=== PATIENT | male | born 1940 | race Caucasian/White ===

== ENCOUNTER 2018-03-26 09:08 | Emergency (ER) | payer MEDICARE, OTHER ==
[~2018-03-26] VITALS: Ht 185.4 cm; Wt 104.3 kg
[2018-03-26 11:02] LABS: BASOPHILS % (AUTO) 0 % (0-10); EOSINOPHILS # (AUTO) 0.1 10^3/uL (0.0-0.3); EOSINOPHILS % (AUTO) 2 % (0-10); HEMATOCRIT 46 % (40-54); HEMOGLOBIN 15.7 G/DL (13.3-17.7); LYMPHOCYTES # (AUTO) 1.9 X 10^3 (1.0-4.0); LYMPHOCYTES % (AUTO) 24 % (12-44); MEAN CORPUSCULAR HEMOGLOBIN 29 PG (25-34); MEAN CORPUSCULAR HGB CONC 34 G/DL (32-36); MEAN CORPUSCULAR VOLUME 85 FL (80-99); MEAN PLATELET VOLUME 10.1 FL (7.4-10.4); MONOCYTES # (AUTO) 0.8 X 10^3 (0.0-1.0); MONOCYTES % (AUTO) 10 % (0-12); NEUTROPHILS # (AUTO) 4.9 X 10^3 (1.8-7.8); NEUTROPHILS % (AUTO) 64 % (42-75); PLATELET COUNT 217 10^3/uL (130-400); RED BLOOD COUNT 5.36 10^6/uL (4.35-5.85); RED CELL DISTRIBUTION WIDTH 14.3 % (10.0-14.5); WHITE BLOOD COUNT 7.7 10^3/uL (4.3-11.0)
[2018-03-26 11:21] LABS: BILIRUBIN,URINE NEGATIVE (NEGATIVE); CLARITY,URINE CLEAR; COLOR,URINE YELLOW; GLUCOSE, URINE (UA) NEGATIVE (NEGATIVE); KETONES,URINE 1+ (NEGATIVE); LEUKOCYTE ESTERASE ,URINE 2+ (NEGATIVE); NITRITE,URINE NEGATIVE (NEGATIVE); PH,URINE 5 (5-9); PROTEIN,URINE 2+ (NEGATIVE); UROBILINOGEN,URINE NORMAL (NORMAL)
[2018-03-26 11:23] LABS: ALANINE AMINOTRANSFERASE 24 U/L (0-55); ALBUMIN 4.4 GM/DL (3.2-4.5); ALKALINE PHOSPHATASE 67 U/L (40-136); BILIRUBIN,TOTAL 0.8 MG/DL (0.1-1.0); BUN/CREATININE RATIO 18; CALCIUM 9.4 MG/DL (8.5-10.1); CARBON DIOXIDE 27 MMOL/L (21-32); CHLORIDE 105 MMOL/L (98-107); CREATININE SERUM 0.99 MG/DL (0.60-1.30); GFR ESTIMATED > 60; GLUCOSE 102 MG/DL (70-105); SODIUM 140 MMOL/L (135-145); TOTAL PROTEIN 7.5 GM/DL (6.4-8.2)
[2018-03-26 11:32] LABS: BACTERIA,URINE TRACE /HPF; SQUAMOUS EPITHELIAL CELL,UR RARE /HPF; WBC,URINE 0-2 /HPF
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
[2018-03-26 12:18] LABS: AMPHETAMINE SCREEN, URINE NEGATIVE (NEGATIVE); BARBITURATE SCREEN URINE NEGATIVE (NEGATIVE); BENZODIAZEPINES SCREEN URINE NEGATIVE (NEGATIVE); CANNABINOID SCREEN, URINE NEGATIVE (NEGATIVE); COCAINE SCREEN URINE NEGATIVE (NEGATIVE); METHADONE STAT NEGATIVE (NEGATIVE); METHAMPHETAMINE SCREEN URINE S NEGATIVE (NEGATIVE); OPIATE SCREEN URINE NEGATIVE (NEGATIVE); OXYCODONE STAT NEGATIVE (NEGATIVE); PROPOXYPHENE STAT NEGATIVE (NEGATIVE); TRICYCLIC ANTIDEPRESSANTS SCRE NEGATIVE (NEGATIVE)
--- NOTE | 2018-03-26 12:21 | Diagnostic Imaging Report ---
PROCEDURE: CT head and CT cervical spine without contrast. TECHNIQUE: Multiple contiguous axial images were obtained through the brain and cervical spine without the use of intravenous contrast. Sagittal and coronal reformations through the cervical spine were then performed. INDICATION: Falls, weakness. COMPARISON: None available. FINDINGS: CT HEAD: No hyperdense hemorrhage or space-occupying mass. No hydrocephalus or midline shift. Cystic encephalomalacia in the left frontal lobe may relate to old intraparenchymal hemorrhage or ischemic insult. Postoperative changes from tumor resection could also have this appearance. Irregularity of the anterior left calvarium may be due to old healed fracture. No acute fracture. Paranasal sinuses and mastoid air cells are clear. CT CERVICAL SPINE: No acute fracture or traumatic malalignment. No fracture within the temporal bones. No high-grade spinal stenosis. No cervical lymphadenopathy. Thyroid is normal. Lung apices are clear. IMPRESSION: 1. No acute intracranial hemorrhage or skull fracture. 2. No acute fracture or traumatic malalignment of the cervical spine. 3. Left frontal encephalomalacia underlies an old healed fracture in the calvarium. This encephalomalacia is likely due to prior intraparenchymal hemorrhage, and correlation with history is advised. Dictated by: Dictated on workstation # [id number]
--- NOTE | 2018-03-26 12:23 | Diagnostic Imaging Report ---
INDICATION: Right-sided numbness, decreasing balance, memory loss, and weakness. TECHNIQUE: PA and lateral views of the chest were obtained at 1222 hours. FINDINGS: The heart and mediastinal silhouette are normal in appearance. The lungs are clear. There is no pneumothorax or pleural fluid. IMPRESSION: No acute process in the chest. Dictated by: Dictated on workstation # [id number]
[2018-03-26 14:29] VITALS: BP 169/98
== END 2018-03-26 14:29 | disposition home or self-care (01) ==
LOC: EDUNIT# 09:08 → ER 09:09
DX: R53.1 Weakness (principal); R20.2 Paresthesia of skin; I10 Essential (primary) hypertension; Z90.89 Acquired absence of other organs; Z91.14 Patient's other noncompliance with medication regimen; Z87.891 Personal history of nicotine dependence
CPT/HCPCS: 36415; 70450; 71046; 72125; 80053; 80306; 81000; 82550; 84443; 84484; 85025; 86141; 86703; 86780; 93005

== ENCOUNTER 2021-02-27 21:55 | Emergency (ER) | payer MEDICARE, OTHER ==
[~2021-02-27] VITALS: Ht 182.9 cm; Wt 108.9 kg
--- NOTE | 2021-02-27 22:49 | ED Abdominal Pain ---
General Chief Complaint: Abdominal/GI Problems Stated Complaint: CONSTIPATION Nursing Triage Note: Pt ambulates to ED 9 with c/o constipation and difficulty urinating. Reports they started at the same time, approximately 2-3 days ago. Pt took Miralax at home (has never taken before) with no improvement. He reports feeling unable to empty his bladder fully and has pain around his lower abdomen that increases when he tries to have a BM Source of Information: Patient, Family (()) Exam Limitations: No Limitations History of Present Illness Date Seen by Provider: Feb 27, 2021 Time Seen by Provider: 22:30 Initial Comments Patient is a 80-year-old male who presents to the emergency department today with a chief complaint of increasing left lower quadrant abdominal pain, constipation for the last 3 days. He complains of little shortness of breath and some generalized weakness. He states he is having a hard time emptying his bladder. He did recently start finasteride per his urologist in [facility]. He states he does not feel like this medication is helping. He states that every time he tries to urinate he has a pressure sensation in his rectum like he needs to have a bowel movement but cannot. He started taking MiraLAX a couple of days ago and prunes yesterday. No relief of symptoms. He denies fevers, ch ills, nausea or vomiting. No burning with urination. No prior abdominal surgeries. History of hypertension, no current coronary artery disease. He is not a diabetic. All other review of systems reviewed and negative except as stated. Timing/Duration: 2-3 Days Severity/Quality: Moderate, Cramping Location: LLQ Radiation: No Radiation Associated Symptoms: Back Pain (low back discomfort), Weakness (mild), Other (some chillls and a little SOB) Allergies and Home Medications Allergies Coded Allergies: No Known Drug Allergies (Unverified , 03/26/18) Patient Home Medication List Home Medication List Reviewed: Yes Review of Systems Review of Systems Constitutional: see HPI, chills EENTM: No Symptoms Reported Respiratory: SOA at Rest Cardiovascular: No Symptoms Reported Gastrointestinal: Abdominal Pain, Constipated Genitourinary: Frequency, Urgency Musculoskeletal: no symptoms reported Skin: no symptoms reported Psychiatric/Neurological: No Symptoms Reported Endocrine: No Symptoms Reported All Other Systems Reviewed Negative Unless Noted: Yes Past Opvipul-Quvnsy-Meydiu Hx Immunizations Up To Date Tetanus Booster (TDap): Unknown PED Vaccines UTD: Yes Seasonal Allergies Seasonal Allergies: No Past Medical History Surgeries: Yes (skull) Orthopedic, Tonsillectomy Respiratory: No Cardiac: Yes Hypertension Neurological: No Genitourinary: Yes Prostate Problems Musculoskeletal: No Endocrine: No HEENT: No Cancer: No Psychosocial: No Integumentary: No Blood Disorders: No Physical Exam Vital Signs Vital Signs - First Documented 02/27/21 22:05 Temp 36.5 Pulse 79 Resp 22 B/P (MAP) 161/99 (119) Pulse Ox 97 O2 Delivery Room Air Capillary Refill : Less Than 3 Seconds Height/Weight/BMI Height: 6'1.00" Weight: 230lbs. oz. 104.901790ir; 32.00 BMI Method:Stated General Appearance: WD/WN, no apparent distress HEENT: PERRL/EOMI Neck: full range of motion, normal inspection Respiratory: lungs clear, normal breath sounds, no respiratory distress, no accessory muscle use Cardiovascular: regular rate, rhythm Gastrointestinal: normal bowel sounds, soft, tenderness (mild tenderness in the LLQ) Rectal: normal rectal tone, other (no large bolus of stool in the rectal vault; unable to fecal occult secondary to no stool) Extremities: normal range of motion, non-tender, normal inspection, no pedal edema Neurologic/Psychiatric: no motor/sensory deficits, alert, normal mood/affect, oriented x 3 Skin: normal color, warm/dry Progress/Results/Core Measures Results/Orders Lab Results Laboratory Tests Test 02/27/21 22:20 02/27/21 22:45 Range/Units White Blood Count 10.3 4.3-11.0 10^3/uL Red Blood Count 4.88 4.30-5.52 10^6/uL Hemoglobin 14.4 13.3-17.7 g/dL Hematocrit 43 40-54 % Mean Corpuscular Volume 88 80-99 fL Mean Corpuscular Hemoglobin 30 25-34 pg Mean Corpuscular Hemoglobin Concent 34 32-36 g/dL Red Cell Distribution Width 13.9 10.0-14.5 % Platelet Count 235 130-400 10^3/uL Mean Platelet Volume 10.1 9.0-12.2 fL Immature Granulocyte % (Auto) 1 % Neutrophils (%) (Auto) 74 42-75 % Lymphocytes (%) (Auto) 17 12-44 % Monocytes (%) (Auto) 8 0-12 % Eosinophils (%) (Auto) 0 0-10 % Basophils (%) (Auto) 0 0-10 % Neutrophils # (Auto) 7.7 1.8-7.8 10^3/uL Lymphocytes # (Auto) 1.7 1.0-4.0 10^3/uL Monocytes # (Auto) 0.9 0.0-1.0 10^3/uL Eosinophils # (Auto) 0.0 0.0-0.3 10^3/uL Basophils # (Auto) 0.0 0.0-0.1 10^3/uL Immature Granulocyte # (Auto) 0.1 0.0-0.1 10^3/uL Sodium Level 137 135-145 MMOL/L Potassium Level 3.8 3.6-5.0 MMOL/L Chloride Level 104 98-107 MMOL/L Carbon Dioxide Level 19 L 21-32 MMOL/L Anion Gap 14 5-14 MMOL/L Blood Urea Nitrogen 20 H 7-18 MG/DL Creatinine 0.92 0.60-1.30 MG/DL Estimat Glomerular Filtration Rate 80 BUN/Creatinine Ratio 22 Glucose Level 107 H 70-105 MG/DL Calcium Level 9.5 8.5-10.1 MG/DL Corrected Calcium 9.3 8.5-10.1 MG/DL Total Bilirubin 0.9 0.1-1.0 MG/DL Aspartate Amino Transf (AST/SGOT) 32 5-34 U/L Alanine Aminotransferase (ALT/SGPT) 15 0-55 U/L Alkaline Phosphatase 71 40-136 U/L Total Protein 7.9 6.4-8.2 GM/DL Albumin 4.3 3.2-4.5 GM/DL Urine Color YELLOW Urine Clarity CLEAR Urine pH 6.0 5-9 Urine Specific [place] >=1.030 1.016-1.022 Urine Protein NEGATIVE NEGATIVE Urine Glucose (UA) NEGATIVE NEGATIVE Urine Ketones NEGATIVE NEGATIVE Urine Nitrite NEGATIVE NEGATIVE Urine Bilirubin NEGATIVE NEGATIVE Urine Urobilinogen 0.2 < = 1.0 MG/DL Urine Leukocyte Esterase NEGATIVE NEGATIVE Urine RBC (Auto) NEGATIVE NEGATIVE Urine RBC NONE /HPF Urine WBC NONE /HPF Urine Squamous Epithelial Cells NONE /HPF Urine Renal Epithelial Cells NONE /HPF Urine Crystals NONE /LPF Urine Bacteria NEGATIVE /HPF Urine Casts NONE /LPF Urine Mucus NEGATIVE /LPF Urine Culture Indicated NO My Orders Orders - JOSIAH TSAI MD Ed Iv/Invasive Line Start (02/27/21 22:44) Cbc With Automated Diff (02/27/21 22:44) Comprehensive Metabolic Panel (02/27/21 22:44) Ua Culture If Indicated (02/27/21 22:44) Abdomen/Kub 1view (02/27/21 22:44) Ns Iv 1000 Ml (Sodium Chloride 0.9%) (02/27/21 23:15) Vital Signs/I&O 02/27/21 22:05 Temp 36.5 Pulse 79 Resp 22 B/P (MAP) 161/99 (119) Pulse Ox 97 O2 Delivery Room Air Blood Pressure Mean: 119 Progress Progress Note : Time: 23:40 Progress Note Patient's labs reviewed, unremarkable. His KUB demonstrates mild to moderate stool burden. Urinalysis is somewhat concentrated with a specific gravity greater than 1.030. Patient's vital signs have been stable. His abdominal exam is benign. I have no concerns for acute intra-abdominal pathology. He does not have any signs or symptoms of bowel obstruction. Patient is concerned that every time he attempts to urinate it is very small amounts and it causes a "cramp" "in his right side. He has an urge to have a bowel movement but then cannot. I have recommended that he supplement his prunes and MiraLAX with some magnesium citrate. He did have a colonoscopy a couple of months ago that showed no significant pathology. I recommended that he use the magnesium citrate like a colon prep. I advised him to follow-up with his urologist tomorrow regarding his dribbling urine. He verbalized understanding. All questions are sought and answered. Patient will be stable for discharge after completion of IV fluids. Diagnostic Imaging Diagonstic Imaging: Xray Comments [facility], [place] NAME: OSVALDOJADPADMINI Malave [facility] REC#: [id number] PT STATUS: REG ER : 1940 PHYSICIAN: JOSIAH TSAI MD ADMIT DATE: 02/27/21/ER Draft Date of Exam:02/27/21 ABDOMEN/KUB 1VIEW HISTORY: Constipation. Abdominal pain in the left lower quadrant of the abdomen TECHNIQUE: Supine frontal views of the abdomen COMPARISON: None FINDINGS: There is a small to moderate amount of stool throughout the colon. No large collection of free air is seen. No distended loops of small bowel are identified. There are degenerative changes in the lower lumbar spine. No acute osseous abnormality is seen. IMPRESSION: 1. Low to moderate stool burden. No small bowel obstruction. Dictated on workstation # [id number] Dict: 02/27/21 2319 Trans: 02/27/21 2321 [facility] [id number] Interpreted by: NICHOLAS SEAMAN MD Electronically signed by: Departure Impression Primary Impression: Constipation Qualified Codes: K59.00 - Constipation, unspecified Disposition: HOME, SELF-CARE Condition: Stable Departure-Patient Inst. Decision time for Depature: 23:42 Referrals: NO,LOCAL PHYSICIAN (PCP/Family) Primary Care Physician Patient Instructions: Constipation, Adult (DC) Add. Discharge Instructions: Continue your daily medications as prescribed. You need to increase your overall intake of water. 8, 8 ounce glasses a day. You will need to do some magnesium citrate to help clean out your bowels. I recommend staying at home drinking half a bottle tomorrow morning and then about another half early tomorrow evening. If you have any severe abdominal cramping, vomiting please come back to the emergency department for reevaluation. Please follow-up with your urologist tomorrow JOSIAH TSAI MD Feb 27, 2021 22:48
[2021-02-27 22:50] LABS: BASOPHILS % (AUTO) 0 % (0-10); EOSINOPHILS % (AUTO) 0 % (0-10); HEMATOCRIT 43 % (40-54); HEMOGLOBIN 14.4 g/dL (13.3-17.7); LYMPHOCYTES # (AUTO) 1.7 10^3/uL (1.0-4.0); LYMPHOCYTES % (AUTO) 17 % (12-44); MEAN CORPUSCULAR HEMOGLOBIN 30 pg (25-34); MEAN CORPUSCULAR HGB CONC 34 g/dL (32-36); MEAN CORPUSCULAR VOLUME 88 fL (80-99); MEAN PLATELET VOLUME 10.1 fL (9.0-12.2); MONOCYTES # (AUTO) 0.9 10^3/uL (0.0-1.0); MONOCYTES % (AUTO) 8 % (0-12); NEUTROPHILS # (AUTO) 7.7 10^3/uL (1.8-7.8); NEUTROPHILS % (AUTO) 74 % (42-75); PLATELET COUNT 235 10^3/uL (130-400); WHITE BLOOD COUNT 10.3 10^3/uL (4.3-11.0)
[2021-02-27 22:51] LABS: BILIRUBIN,URINE NEGATIVE (NEGATIVE); CLARITY,URINE CLEAR; COLOR,URINE YELLOW; GLUCOSE, URINE (UA) NEGATIVE (NEGATIVE); KETONES,URINE NEGATIVE (NEGATIVE); LEUKOCYTE ESTERASE ,URINE NEGATIVE (NEGATIVE); NITRITE,URINE NEGATIVE (NEGATIVE); PROTEIN,URINE NEGATIVE (NEGATIVE)
[2021-02-27 22:52] LABS: ALBUMIN 4.3 GM/DL (3.2-4.5)
[2021-02-27 22:53] LABS: POTASSIUM 3.8 MMOL/L (3.6-5.0)
[2021-02-27 22:54] LABS: CALCIUM 9.5 MG/DL (8.5-10.1)
[2021-02-27 22:55] LABS: TOTAL PROTEIN 7.9 GM/DL (6.4-8.2)
[2021-02-27 22:57] LABS: BILIRUBIN,TOTAL 0.9 MG/DL (0.1-1.0)
[2021-02-27 22:59] LABS: CREATININE SERUM 0.92 MG/DL (0.60-1.30)
[2021-02-27 23:00] LABS: BACTERIA,URINE NEGATIVE /HPF
[2021-02-27] MEDS ORDERED: NS IV 1000 ML 1,000 ML IV SCH (23:15)
--- NOTE | 2021-02-27 23:21 | Diagnostic Imaging Report ---
HISTORY: Constipation. Abdominal pain in the left lower quadrant of the abdomen TECHNIQUE: Supine frontal views of the abdomen COMPARISON: None FINDINGS: There is a small to moderate amount of stool throughout the colon. No large collection of free air is seen. No distended loops of small bowel are identified. There are degenerative changes in the lower lumbar spine. No acute osseous abnormality is seen. IMPRESSION: 1. Low to moderate stool burden. No small bowel obstruction. Dictated by: Dictated on workstation # [id number]
[2021-02-28 00:27] VITALS: BP 136/83
--- OUTSIDE RECORDS SUMMARY | 2021-02-28 12:00 | XMS REPORT | Clinical Summary ---
Author Author [facility] Organization [facility] Address Unknown Phone Unavailable Care Team Providers Care Marketing Traffic Coordinator Name Role Phone Dpt [facility] PCP Source Comments Some departments are not documenting in the electronic medical record. If you d o not see the information that you expected, contact Release of Information in [facility] Information Management department at [phone] for further assistan ce in locating additional records.[facility] Allergies No known active allergies Medications End Date Status Medication Sig Dispensed Refills Start Date Active terazosin (HYTRIN) 2 mg Take 1 0 capsule capsule by mouth at bedtime daily. Active aspirin 81 mg chewable Chew 81 mg by 0 tablet mouth daily. Take with food. Active losartan (COZAAR) 50 mg Take 50 mg by 0 tablet mouth daily. Active betamethasone valerate Apply 0 (VALISONE) 0.1 % topical topically to cream affected area twice daily. Active amLODIPine (NORVASC) 10 Take 10 mg by 0 mg tablet mouth daily. Active atorvastatin (LIPITOR) 20 Take one 90 tablet 3 04/01/201 mg tablet tablet by 8 mouth daily. 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 Surgical History Surgery Date Site/Laterality Comments HX TONSILLECTOMY Medical History Medical History Date Comments Hypertension Stroke (HCC) Family History Medical History Relation Name Comments Cancer Mother Dementia Neg Hx Parkinson's Neg Hx Tremor Neg Hx Relation Name Status Comments Mother Social History Date Tobacco Use Types Packs/Day Years Used Former Smoker Smokeless Tobacco: Never Used Tobacco Cessation: Counseling Given: No Comments: quit in his 20s Comments Alcohol Use Standard Drinks/Week occ No 0 (1 standard drink = 0.6 o z pure alcohol) Alcohol Habits Answer Date Recorded How often do you have a drink containing alcohol? Never 04/25/2018 How many drinks containing alcohol do you have on No t asked a typical day when you are drinking? How often do you have six or more drinks on one Not asked occasion? 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 Temperature - - Respiratory Rate 100% 07/04/2018 10:08 AM CDT Oxygen Saturation - - Inhaled Oxygen Concentration 113.4 kg (250 lb) 07/04/2018 10:08 AM CDT Weight 182.9 cm (6') 07/04/2018 10:08 AM CDT Height 33.91 07/04/2018 10:08 AM CDT Body Mass Index Plan of Treatment Health Maintenance Due Date Last Done Comments MEDICARE ANNUAL WELLNESS 1940 VISIT DTAP/TDAP VACCINES (1 - 1960 Tdap) HEPATITIS C SCREENING 1958 PHYSICAL (COMPREHENSIVE) 1958 EXAM SHINGLES RECOMBINANT 1992 VACCINE (1 of 2) PNEUMONIA (PPSV23) 07/16/2007 VACCINE (1 of 1 - PPSV23) INFLUENZA VACCINE 11/07/2020 Results Not on filefrom Last 3 Months Insurance Type Payer Benefit Subscriber ID Effective Phone Address Plan / Dates Group Medicare MEDICARE MEDICARE [id number] 2009-P [phone] [address] [place] [address] Medicare CIGNA CIGNA [id number] 2018- [phone] [address] MEDICARE Present [address] [phone] Advance Directives 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 needed Care Teams Start Date End Date Marketing Traffic Coordinator Relationship Specialty 03/30/18 Dpt Vani Pierce In PCP - General [address] [place] [address]
--- OUTSIDE RECORDS SUMMARY | 2021-02-28 12:00 | XMS REPORT ---
Author Author Courtney Sarah [facility] Address [address] [place], [place] [id number] Care Team Providers Care Pourer Off Name Role Phone [place] Billy PCP Allergies and Adverse Reactions Name Reaction Notes No known allergies Plan of Treatment Not available. Medications Active Name Start Date Estimated Completion Date SIG Co mments valacyclovir 1 gram oral tablet take 1 tablet (1,000 mg) by oral route 3 times per day furosemide 20 mg oral tablet take 1 table t (20 mg) by oral route once daily gabapentin 300 mg oral capsule t roseline 1 capsule (300 mg) by oral route 3 times per day losartan 50 mg oral tablet take 1 tablet (50 mg) by oral route once daily terazosin 2 mg oral capsule 06/22/2020 06/17/2021 take 3 capsules by oral route daily for 90 days finasteride 5 mg oral tablet 02/08/2021 02/03/2022 tammi e 1 tablet (5 mg) by oral route once daily for 30 days Name Start Date Expiration Date SIG Comments Cipro 500 mg oral tablet 10/16/2019 10/30/2019 take 1 tablet (500 mg) by oral route every 12 hours for 14 days clotrimazole-betamethasone 1-0.05 % topical cream 11/18/2019 12/02/2019 apply to the affected and surrounding areas of skin by topical route 2 times per day in the morning and evening for 2 weeks Problem List Not available. Vital Signs Date Time BP-Sys(mm[Hg] BP-Mary(mm[Hg]) HR(bpm) RR(rpm) Temp WT HT HC BMI BSA BMI Percentile O2 Sat(%) 02/08/2021 9:02:00 AM 144 mm[Hg] 86 mm[Hg] 65 {beats}/min 18 rpm 98.1 F 238 lbs 72 in 32.2783 kg/m2 2.3418 m2 98 % 08/31/2020 11:14:00 AM 132 mm[Hg] 78 mm[Hg] 63 {beats}/min 18 rpm 98.6 F 98 % 06/22/2020 9:56:00 AM 130 mm[Hg] 86 mm[Hg] 56 {beats}/min 18 rpm 98.6 F 241 lbs 72 in 32.69 kg/m2 2.36 m2 98 % 12/23/2019 9:44:00 AM 138 mm[Hg] 82 mm[Hg] 58 {beats}/min 18 rpm 97 F 233 lbs 72 in 31.6002 kg/m2 2.3171 m2 98 % 11/18/2019 2:24:00 PM 132 mm[Hg] 80 mm[Hg] 76 {beats}/min 18 rpm 97.6 F 243 lbs 72 in 32.96 kg/m2 2.37 m2 97 % 10/16/2019 2:24:00 PM 132 mm[Hg] 70 mm[Hg] 63 {beats}/min 97.9 F 243 lbs 72 in 32.9564 kg/m2 2.3663 m2 98 % Social History Name Description Comments Alcohol Current some day Tobacco Former smoker History of Procedures Date Ordered Description Order Status 12/16/2019 12:00 AM ASSAY OF PSA TOTAL Reviewed 06/22/2020 11:28 AM US URINE CAPACITY MEASURE Reviewed 06/22/2020 12:00 AM URINALYSIS AUTO W/SCOPE Reviewed 08/31/2020 11:14 AM US URINE CAPACITY MEASURE Reviewed 08/31/2020 12:00 AM URINALYSIS AUTO W/SCOPE Reviewed 02/08/2021 9:17 AM US URINE CAPACITY MEASURE Reviewed Results Summary Date and Description Results 12/22/2019 1:20 PM PSA TOTAL 4.150 ng/mL 06/22/2020 11:28 AM Residual Urine 256.0 mL 06/22/2020 11:53 AM COLOR Light-Yellow CLARITY C lear SPEC GRAV 1.019 pH 5.5 PROTEIN Negative GLUCOSE Normal KETONE Negative BILIRUBIN Negative BLOOD Negative NITRITE Negative LEUK SCREEN Negative RBC/HPF 0-3 WBC/HPF None Seen BACTERIA/HPF None Seen SQUAMOUS EPI/LPF Few MUCOUS/LPF Few CULT SET UP? NO 08/31/2020 11:14 AM Residual Urine 255.0 mL 08/31/2020 12:47 PM COLOR Yellow CLARITY Clear S PEC GRAV 1.016 pH 5.5 PROTEIN Negative GLUCOSE Normal KETONE Negative BILIRUBIN Negative BLOOD Negative NITRITE Negative LEUK SCREEN Negative RBC/HPF 0-3 WBC/HPF 0-5 BACTERIA/HPF None Seen SQUAMOUS EPI/LPF Few MUCOUS/LPF 1+ CULT SET UP? NO 02/08/2021 9:17 AM Residual Urine 374.0 mL History Of Immunizations Not available. History of Past Illness Name Date of Onset Comments Hypertension Edema Benign prostatic hyperplasia with lower urinary tract symptoms Oct 16 2019 2:31PM Prostatitis Oct 16 2019 2:31PM BPH (benign prostatic hyperplasia) Nov 18 2019 2:25PM Prostatitis Nov 18 2019 2:25PM Balanitis Nov 18 2019 2:25PM BPH (benign prostatic hyperplasia) Dec 23 2019 9:46AM Urinary Frequency Jun 22 2020 9:57AM Benign prostatic hyperplasia with lower urinary tract symptoms Jun 22 2020 9:57AM Other obstructive and reflux uropathy Jun 22 2020 9:57AM Incomplete bladder emptying Jun 22 2020 9:57AM Benign prostatic hyperplasia with lower urinary tract symptoms Aug 31 2020 11:14AM Other obstructive and reflux uropathy Aug 31 2020 11:14AM Incomplete bladder emptying Aug 31 2020 11:14AM Urinary retention Feb 08 2021 9:05AM BPH (benign prostatic hyperplasia) Feb 08 2021 9:05AM Payers Insurance Name Company Name Plan Name Plan Number Policy Number [place] Group Number Start Date [place] [employer] [employer] [place] [employer] [id number] Rafa velarde, 2020 WPS - VAPCCC - 's Choice WPS VACAA [id number] N/A [place] [employer] [place] [employer] [id number] Gerhard velarde, 2019 History of Encounters Visit Date Visit Type Provider 02/08/2021 Office visit Billy Sarah MD 08/31/2020 Office visit NICHOLAS FLOREZ OUTBOARD TECHNICIAN 06/22/2020 Office visit NICHOLAS FLOREZ OUTBOARD TECHNICIAN 12/23/2019 Office visit NICHOLAS FLOREZ OUTBOARD TECHNICIAN 12/22/2019 Laboratory Jana CAZARES RN 11/18/2019 Office visit NICHOLAS FLOREZ OUTBOARD TECHNICIAN 10/16/2019 Office visit Billy Sarah MD
== END 2021-02-28 00:27 | disposition home or self-care (01) ==
LOC: EDUNIT# 21:55 → ER 21:57
DX: K59.00 Constipation, unspecified (principal); I10 Essential (primary) hypertension
CPT/HCPCS: 36415; 74018; 80053; 81000; 85025